=== PATIENT | male | born 1990 | race Two or more races ===

== ENCOUNTER 2019-06-03 13:50 | Emergency (ER) | payer OTHER ==
--- NOTE | 2019-06-03 14:07 | ER Document Report ---
ED Medical Screen (RME) - General Chief Complaint: Dizziness Stated Complaint: DIZZY Time Seen by Provider: 06/03/19 14:01 Mode of Arrival: Wheelchair Information source: Patient Notes: 29-year-old male with history of prediabetes presents the emergency department with reports that his felt like his heart was racing and felt very weak. [place] [facility] [place] Unsure of immunizations. He denies fever vomiting diarrhea. He has had night sweats. He was sitting at a table inside when the symptoms started. No recent strenuous exercise. He reports he is really thirsty. Denies urinary frequency. I have greeted and performed a rapid initial assessment of this patient. A comprehensive ED assessment and evaluation of the patient, analysis of test results and completion of the medical decision making process will be conducted by additional ED providers. Dictation of this chart was performed using voice recognition software; therefore, there may be some unintended grammatical errors. - Related Data Allergies/Adverse Reactions: No Known Allergies Allergy (Verified 06/03/19 14:05) Physical Exam - Vital signs Vitals: Temp Pulse Resp BP Pulse Ox 97.4 F 87 16 148/79 H 99 06/03/19 13:54 06/03/19 13:54 06/03/19 13:54 06/03/19 13:54 06/03/19 13:54 Course - Vital Signs Vital signs: Temp Pulse Resp BP Pulse Ox 98.1 F 100 16 132/55 H 100 06/03/19 17:50 06/03/19 17:50 06/03/19 17:50 06/03/19 17:50 06/03/19 17:50 - Laboratory Result Diagrams: 06/03/19 14:36 06/03/19 14:36 Laboratory results interpreted by me: 06/03/19 06/03/19 06/03/19 14:28 14:36 14:36 BUN 24 H Creatinine 1.27 H Glucose 120 H POC Glucose 114 H Total Bilirubin 1.4 H Total Protein 8.3 H Urine Blood SMALL H
[2019-06-03 14:59] LABS: ABSOLUTE LYMPHOCYTES (AUTO) 1.4 10^3/uL (0.5-4.7); ABSOLUTE MONOCYTES (AUTO) 0.5 10^3/uL (0.1-1.4); ABSOLUTE NEUT (AUTO) 2.4 10^3/uL (1.7-8.2); BASOPHILS % (AUTO) 0.3 % (0-2); EOSINOPHILS % (AUTO) 0.6 % (0-6); HEMATOCRIT 41.4 % (37.9-51.0); HEMOGLOBIN 14.1 g/dL (13.5-17.0); LYMPHOCYTES % (AUTO) 33.3 % (13-45); MEAN CORPUSCULAR HEMOGLOBIN 28.8 pg (27.0-33.4); MEAN CORPUSCULAR VOLUME 85 fl (80-97); MONOCYTES % (AUTO) 10.5 % (3-13); PLATELET COUNT 223 10^3/uL (150-450); RED BLOOD COUNT 4.88 10^6/uL (4.35-5.55); RED CELL DISTRIBUTION WIDTH 13.6 % (11.5-14.0); SEGMENTED NEUTROPHILS % (AUTO) 55.3 % (42-78); TOTAL CELLS COUNTED % (AUTO) 100 %; WHITE BLOOD COUNT 4.3 10^3/uL (4.0-10.5)
[2019-06-03 15:14] LABS: APPEARANCE,URINE CLEAR; BILIRUBIN,URINE NEGATIVE (NEGATIVE); COLOR,URINE YELLOW; GLUCOSE, URINE NEGATIVE (NEGATIVE); KETONES,URINE NEGATIVE (NEGATIVE); LEUKOCYTE ESTERASE,URINE NEGATIVE (NEGATIVE); NITRITE,URINE NEGATIVE (NEGATIVE); PROTEIN,URINE NEGATIVE (NEGATIVE); URINE SPECIFIC GRAVITY 1.023; UROBILINOGEN,URINE NEGATIVE mg/dL (<2.0)
[2019-06-03 15:16] LABS: ALBUMIN 4.9 g/dL (3.5-5.0); ALKALINE PHOSPHATASE 42 U/L (38-126); ANION GAP 11 (5-19); ASPARTATE AMINO TRANSFERASE 34 U/L (17-59); BILIRUBIN,TOTAL 1.4 mg/dL (0.2-1.3); BLOOD UREA NITROGEN 24 mg/dL (7-20); CALCIUM 9.7 mg/dL (8.4-10.2); CARBON DIOXIDE 28 mmol/L (22-30); CHLORIDE 99 mmol/L (98-107); GLUCOSE 120 mg/dL (75-110); POTASSIUM 3.9 mmol/L (3.6-5.0); TOTAL PROTEIN 8.3 g/dL (6.3-8.2)
--- NOTE | 2019-06-03 15:31 | RADIOLOGY REPORT (SQ) ---
EXAM DESCRIPTION: CHEST 2 VIEWS COMPLETED DATE/TIME: 06/03/2019 2:58 pm REASON FOR STUDY: palpitations COMPARISON: None. EXAM PARAMETERS: NUMBER OF VIEWS: two views TECHNIQUE: Digital Frontal and Lateral radiographic views of the chest acquired. RADIATION DOSE: NA LIMITATIONS: none FINDINGS: LUNGS AND PLEURA: No opacities, masses or pneumothorax. No pleural effusion. MEDIASTINUM AND HILAR STRUCTURES: No masses or contour abnormalities. HEART AND VASCULAR STRUCTURES: Heart normal size. No evidence for failure. BONES: No acute findings. HARDWARE: None in the chest. OTHER: No other significant finding. IMPRESSION: NO ACUTE RADIOGRAPHIC FINDING IN THE CHEST. TECHNICAL DOCUMENTATION: JOB ID: [id number] [employer]- All Rights Reserved Reading location - IP/workstation name: [email or web address]
--- NOTE | 2019-06-03 19:25 | ER Document Report ---
ED Dizziness/Weakness - General Chief Complaint: Dizziness Stated Complaint: DIZZY Time Seen by Provider: 06/03/19 14:01 Mode of Arrival: Wheelchair Notes: Patient is an otherwise healthy 29-year-old male presenting to the emergency department chief complaint of dizziness and palpitations that began while he was at work this afternoon. He states that he was working indoors when his symptoms occurred. He denies any history of similar symptoms. He states that he has been trying to stay adequately hydrated lately. He denies any chest pain or shortness of breath with the symptoms. TRAVEL OUTSIDE OF THE [place] IN LAST 30 DAYS: No - Related Data Allergies/Adverse Reactions: No Known Allergies Allergy (Verified 06/03/19 14:05) Past Medical History - General Information source: Patient - Social History Smoking Status: Current Some Day Smoker Chew tobacco use (# tins/day): No Frequency of alcohol use: None Drug Abuse: None Family History: Reviewed & Not Pertinent Patient has suicidal ideation: No Patient has homicidal ideation: No Endocrine Medical History: Reports: Hx Diabetes Mellitus Type 2 - prediabetic Review of Systems - Review of Systems Constitutional: Malaise EENT: No symptoms reported Cardiovascular: Palpitations, Heart racing, Dizziness. denies: Chest pain, Dyspnea, Syncope Respiratory: No symptoms reported Gastrointestinal: No symptoms reported Genitourinary: No symptoms reported Male Genitourinary: No symptoms reported Musculoskeletal: No symptoms reported Skin: No symptoms reported Hematologic/Lymphatic: No symptoms reported Neurological/Psychological: No symptoms reported Physical Exam - Vital signs Vitals: Temp Pulse Resp BP Pulse Ox 97.4 F 87 16 148/79 H 99 06/03/19 13:54 06/03/19 13:54 06/03/19 13:54 06/03/19 13:54 06/03/19 13:54 - Notes Notes: PHYSICAL EXAMINATION: GENERAL: Well-appearing, well-nourished and in no acute distress. HEAD: Atraumatic, normocephalic. EYES: Pupils equal round and reactive to light, extraocular movements intact, sclera anicteric, conjunctiva are normal. ENT: Nares patent, oropharynx clear without exudates. Moist mucous membranes. NECK: Normal range of motion, supple without lymphadenopathy LUNGS: Breath sounds clear to auscultation bilaterally and equal. No wheezes rales or rhonchi. HEART: Regular rate and rhythm without murmurs ABDOMEN: Soft, nontender, nondistended abdomen. No guarding, no rebound. No masses appreciated. Musculoskeletal: Normal range of motion, no pitting or edema. No cyanosis. NEUROLOGICAL: Cranial nerves grossly intact. Normal speech, normal gait. Normal sensory, motor exams PSYCH: Normal mood, normal affect. SKIN: Warm, Dry, normal turgor, no rashes or lesions noted. Course - Re-evaluation Re-evalutation: Patient appears well, nontoxic and vital signs are within normal limits. Patient was initially seen by provider in triage who initiated his work-up. Patient reports to me that he is feeling much improved. His lab work was unremarkable other than mildly elevated creatinine of 1.37. Patient did have an EKG performed that showed a sinus rhythm, normal axis, no ST segment elevations or depressions, this EKG does not have a comparison on file. Chest x-ray was unremarkable. Patient has not had any episodes of palpitations or dizziness while in the emergency department today. I highly encouraged him to follow-up with his primary care provider and a head screen worker. Patient reports he is out of state working but is going home in the next 1 to 2 days. Patient reminded to return to the emergency department in the meantime if he is unable to get into see a primary care provider. Patient verbalizes understanding and agreement with treatment plan. The patient's emergency department workup and current diagnosis were explained to the patient and or family. Follow-up instructions were provided. Medica tions if prescribed were discussed. Instructions for when to return to the emergency department including specific worrisome symptoms were discussed with the patient and/or family. - Vital Signs Vital signs: Temp Pulse Resp BP Pulse Ox 98.2 F 62 16 149/82 H 99 06/03/19 19:46 06/03/19 19:46 06/03/19 19:46 06/03/19 19:46 06/03/19 19:46 - Laboratory Result Diagrams: 06/03/19 14:36 06/03/19 14:36 Laboratory results interpreted by me: 06/03/19 06/03/19 06/03/19 14:28 14:36 14:36 BUN 24 H Creatinine 1.27 H Glucose 120 H POC Glucose 114 H Total Bilirubin 1.4 H Total Protein 8.3 H Urine Blood SMALL H - Diagnostic Test Radiology reviewed: Image reviewed, Reports reviewed - EKG Interpretation by Me EKG shows normal: Sinus rhythm Rate: Normal Rhythm: NSR When compared to previous EKG there are: Previous EKG unavailable Discharge - Discharge Clinical Impression: Dizziness, Palpitations Condition: Stable Disposition: HOME, SELF-CARE Additional Instructions: You are seen in the emergency department today for an episode of dizziness and palpitations. Your work-up here in the emergency department today was reassuring. Your EKG and lab work were normal. It is very important that you follow-up with both your primary care provider and a head screen worker if you continue to have palpitations. Please continue to stay hydrated. A copy of all your lab work and EKG was given to you for your primary care providers review. Forms: Return to Work
[2019-06-03 19:47] VITALS: BP 149/82
[2019-06-03] MEDS ORDERED: ACETAMINOPHEN 325 MG TABLET PO ONE (19:48)
--- NOTE | 2019-06-05 09:12 | EKG REPORT ---
SEVERITY:- NORMAL ECG - SINUS RHYTHM : Confirmed by: Steffany Alvarado 05-Jun-2019 09:12:07
== END 2019-06-03 20:05 | disposition home or self-care (01) ==
LOC: ER 13:50
DX: R42 Dizziness and giddiness (principal); R00.2 Palpitations; R53.81 Other malaise; R79.89 Other specified abnormal findings of blood chemistry; F17.200 Nicotine dependence, unspecified, uncomplicated
CPT/HCPCS: 36415; 71046; 80053; 81001; 82962; 85025; 93005; 93010; 99285